=== PATIENT | female | born 1990 | race Caucasian/White ===

== ENCOUNTER 2024-03-01 09:58 | Emergency (ER) | payer OTHER ==
[~2024-03-01] VITALS: Ht 162.6 cm; Wt 59.1 kg
[2024-03-01 10:07] VITALS: TEMP 97.7
[2024-03-01] MEDS ORDERED: NO HOME MEDS (10:39)
[2024-03-01 10:48] LABS: BASOPHILS % (AUTO) 0.5 % (0-1); EOSINOPHILS # (AUTO) 0.1 X10'3 (0-0.9)
[2024-03-01 10:50] LABS: HEMATOCRIT 40.4 % (35.0-45.0); HEMOGLOBIN 13.7 g/dl (12.0-16.0); LYMPHOCYTES # (AUTO) 3.7 X10'3 (1.1-4.8); LYMPHOCYTES % (AUTO) 64.3 % (21-51); MEAN CORPUSCULAR HEMOGLOBIN 29.8 PG (27.0-31.0); MEAN CORPUSCULAR VOLUME 87.6 FL (78-98); MEAN PLATELET VOLUME 7.3 FL (7.4-10.4); MONOCYTES # (AUTO) 0.4 X10'3 (0-0.9); MONOCYTES % (AUTO) 6.5 % (2-12); NEUTROPHILS # (AUTO) 1.6 X10'3 (1.8-7.7); NEUTROPHILS % (AUTO) 27.7 % (42-75); PLATELET COUNT 264 X10'3 (140-440); RED BLOOD COUNT 4.61 X10'6 (4.20-5.60); RED CELL DISTRIBUTION WIDTH 13.2 % (11.5-14.5); WHITE BLOOD COUNT 5.8 X10'3 (4.5-11.0)
[2024-03-01 10:53] LABS: ALBUMIN 3.8 G/DL (3.4-5.0); ANION GAP 13 (8-16); BLOOD UREA NITROGEN 9 MG/DL (7-18); BUN/CREATININE RATIO 10.6 (10.0-20.0); CALCIUM 8.6 MG/DL (8.5-10.1); CHLORIDE 105 MMOL/L (99-107); CREATININE 0.85 MG/DL (0.40-0.90); GLUCOSE 109 MG/DL (70-104); POTASSIUM 3.1 MMOL/L (3.5-5.1); SODIUM 138 MMOL/L (135-145); TOTAL CARBON DIOXIDE 20.1 MMOL/L (24-32); eCRCL 83 ML/MIN; eGFR 78 ML/MIN
[2024-03-01 10:56] LABS: APTT 26 SECONDS (22-32); PROTHROMBIN TIME 10.6 SECONDS (9.0-12.0)
[2024-03-01] MEDS ORDERED: iohexol 350MG/ML 100ml bottle IV ONE (11:02)
[2024-03-01] MEDS: diphenhydrAMINE 50 mg/ml inj IV ONE (11:24)
[2024-03-01] MEDS: ketorolac trometh 15mg/ml vial 15 MG/ML ML IV ONE (11:25)
[2024-03-01] MEDS: proCHLORperazine 10 MG/2 ml inj IV ONE (11:26)
[2024-03-01 14:15] VITALS: BP 101/64; PULSE 73; RESP 16; O2SAT 97
[2024-03-01] MEDS: potassium Cl 20 mEq SR tablet PO ONE (14:21)
== END 2024-03-01 14:15 | disposition home or self-care (01) ==
LOC: ER 09:59
DX: R47.01 Aphasia (principal); G43.809 Other migraine, not intractable, without status migrainosus; F41.9 Anxiety disorder, unspecified; R41.0 Disorientation, unspecified; R79.1 Abnormal coagulation profile; R07.89 Other chest pain
CPT/HCPCS: 70450; 70496; 70498; 71045; 80048; 82948; 85025; 85610; 85730; 93005; 96374; 96375; 99285; J0780; J1200; J1885; J7030; Q9967

== ENCOUNTER 2024-12-22 10:54 | Inpatient (IN) | payer OTHER ==
[~2024-12-22] VITALS: Ht 162.6 cm; Wt 57.6 kg
[~2024-12-22 10:54] MED LIST: NO HOME MEDS
--- NOTE | 2024-12-22 12:26 | Physician Documentation ---
History of Present Illness General Chief Complaint: See Chief Complaint Stated Complaint: DYSPHAGIA Time Seen by MD: 11:49 Primary Medical Doctor: NONE History of Present Illness Initial Comments The patient is a 34-year-old female who has prescribed doxycycline by her rv technician. She took it on Sunday, five days ago with a very small quantity of water and immediately laid down to go to sleep. Since then, swallowing anything has been very painful. Medication Reconciliation Allergies: Coded Allergies: No Known Allergies (Unverified , 12/22/24) Miscellaneous Medications Home Med List (No Home Medications), (Reported) Past Medical History Past Medical History: Anxiety Alcohol Use: None Drug Use: none Review of Systems ROS Constitutional: Denies chills, fatigue, fever, weight gain or weight loss. HEENT: Denies hearing loss, sinus pressure or visual changes. Respiratory: Denies cough, shortness of breath or wheezing. Cardiovascular: Denies chest pain, pain while walking (claudication), edema or palpitations. Gastrointestinal: Painful swallowing. Genitourinary: Denies painful urination (dysuria), excessive amount of urine (polyuria) or urinary frequency. Metabolic/Endocrine: Denies cold intolerance, heat intolerance, excessive thirst (polydipsia) or excessive hunger (polyphagia). Neurological: Denies dizziness, extremity numbness, extremity weakness, headaches, seizures or tremors. Psychiatric: Denies anxiety or depression. Integumentary: Denies breast discharge, breast lump, hives, mole change(s), rash or skin lesion. Musculoskeletal: Denies back pain, joint pain, joint swelling or neck pain. Hematologic: Denies easily bleeding, easily bruises, lymphedema or issues with blood clots. Immunologic: Denies food allergies or seasonal allergies. Physical Exam Physical Exam Vital Signs: Temperature: 97.6, Source: Temporal, Heart Rate: 74, Respiratory R ate: 18, BP: 104/77, Pulse Oximetry: 99, Weight: 57.600 Physical Exam Physical Exam Vitals and nursing note reviewed. Constitutional: General: Patient is awake, alert, oriented x 4 in no acute distress and well appearing. Speech is clear and lucid. Appearance: Normal appearance. Patient is not ill-appearing, toxic-appearing or diaphoretic. HENT: Head: Normocephalic and atraumatic. Mouth/Throat: Mouth: Mucous membranes are moist. Pharynx: Oropharynx is clear. Eyes: General: No scleral icterus. Extraocular Movements: Extraocular movements intact. Pupils: Pupils are equal, round, and reactive to light. Neck: Supple, no Kernig or Brudzinski sign. Cardiovascular: Rate and Rhythm: Normal rate and regular rhythm. Heart sounds: No murmur heard. Pulmonary: Effort: No respiratory distress. Breath sounds: No wheezing, rhonchi or rales. Abdominal: General: There is no distension. Palpations: There is no fluid wave, hepatomegaly or mass. Tenderness: There is no abdominal tenderness. There is no guarding. Musculoskeletal: General: No swelling or deformity. Skin: Coloration: Skin is not jaundiced. Findings: No erythema or rash. Neurological: Mental Status: Patient is alert. Progress Results/Orders Results/Orders Orders - NATASHA HAYNES MD CMP (12/22/24 12:05) Lipase (12/22/24 12:05) PTT (12/22/24 12:05) Normal Saline 1000ml (0.9% Sodium Chlori (12/22/24 12:05) Page Hospitalist (12/22/24 12:26) Completed Orders - NATASHA HAYNES MD Cbc/Diff (12/22/24 12:05) Pantoprazole 40mg Iv (Protonix 40mg Iv) (12/22/24 12:05) Medications Received in ER Medications (Trade) Dose Ordered Sig/Kasi Route PRN Reason Start Time Stop Time Status Last Admin Dose Admin Sodium Chloride 1,000 ml @ 1,000 mls/hr ONCE ONCE IV 12/22/24 12:05 12/22/24 13:04 12/22/24 12:46 1,000 MLS/HR (Protonix 40mg IV) 40 mg ONCE STAT IV 12/22/24 12:05 12/22/24 12:21 DC 12/22/24 12:46 40 MG Vital Signs 12/22/24 12/22/24 12/22/24 11:12 12:35 12:37 Temp 97.6 Pulse 74 71 Resp 18 16 16 B/P (MAP) 104/77 106/74 (85) Pulse Ox 99 100 O2 Flow Rate 0 Laboratory Tests Test 12/22/24 12:29 White Blood Count 8.6 Red Blood Count 4.46 Hemoglobin 13.4 Hematocrit 39.8 Mean Corpuscular Volume 89.3 Mean Corpuscular Hemoglobin 30.1 Mean Corpuscular Hemoglobin Concent 33.8 Red Cell Distribution Width 12.4 Platelet Count 303 Mean Platelet Volume 7.7 Neutrophils (%) (Auto) 65.6 Lymphocytes (%) (Auto) 27.5 Monocytes (%) (Auto) 5.6 Eosinophils (%) (Auto) 0.8 Basophils (%) (Auto) 0.5 Neutrophils # (Auto) 5.7 Lymphocytes # (Auto) 2.4 Monocytes # (Auto) 0.5 Eosinophils # (Auto) 0.1 Basophils # (Auto) 0.0 CBC Comment Coagulation Comments Chemistry Comments Medical Decision Making Findings This patient gives a strong history for pill esophagitis. I spoke with Dr. Driver who requested we admit her and she will do an EGD tomorrow. I am giving her IV fluids and Protonix. 12:35 p.m.: I spoke with Dr. Galvez who indicated that the patient would have an EGD tomorrow if she is admitted today. Departure Disposition: ADMITTED INPATIENT Impression: Primary Impression: Pill esophagitis Additional Impression: Odynophagia Condition: Stable Referrals: NO PRIMARY CARE PROVIDER (PCP) Signature Scribe Signature: . Attestation: . NATASHA HAYNES MD Dec 22, 2024 12:26
[2024-12-22] MEDS: normal saline 1000ml 1,000 ML IV ONE (12:46)
[2024-12-22 12:48] LABS: MEAN PLATELET VOLUME 7.7 FL (7.4-10.4); RED CELL DISTRIBUTION WIDTH 12.4 % (11.5-14.5)
[2024-12-22] MEDS ORDERED: magnesium hydroxide 30ml (MOM) UD suspension PO PRN (12:50)
[2024-12-22] MEDS ORDERED: potassium Cl 20 mEq SR tablet PO PRN ×2 (12:50)
[2024-12-22] MEDS ORDERED: magnesium Cl slow-release 64mg tablet PO PRN (12:50)
[2024-12-22] MEDS ORDERED: ondansetron/PF 4mg/2ml inj IV PRN (12:50)
[2024-12-22] MEDS ORDERED: magnesium sulf-water 4G/100mL 100 ML IV PRN (12:50)
[2024-12-22] MEDS ORDERED: magnesium sulf-water 2g/50mL 50 ML IV PRN (12:50)
[2024-12-22] MEDS ORDERED: bisacodyl 10mg suppository rectal RC PRN (12:50)
[2024-12-22] MEDS ORDERED: potassium Cl 40MEQ/1/2NS 520ml 520 ML IV PRN (12:50)
[2024-12-22] MEDS ORDERED: HYDROcodone/acetaminophen 5mg/325mg tablet PO PRN (12:50)
[2024-12-22 12:59] LABS: APTT 27 SECONDS (22-32)
[2024-12-22 13:05] LABS: CREATININE 0.79 MG/DL (0.40-0.90); TOTAL CARBON DIOXIDE 24.2 MMOL/L (24-32); eCRCL 88 ML/MIN; eGFR 84 ML/MIN
--- NOTE | 2024-12-22 13:12 | HISTORY AND PHYSICAL-Residence ---
History & Physical Providers to CC Resident Creating Document: ORIANA SILVESTRE RES ~ History of Present Illness Primary Medical Doctor: NONE Reason for Admit\Complaint: Chest pain History of Present Illness 34 year year old pleasant young lady presented to the ER with past medical history of [id number]-[id number] iron-deficiency anemia, acne presented to the ER with a chest pain. Reports chest pain, retrosternal, burning type, currently at 2/10 but whenever she takes food and water pain will be aggravated to 7 to 8/10. She was apparently doing better a few weeks back but she received almost 60 doxycycline pills for 30 days by cafeteria attendant for acne. She endorses mild burning type of abdominal pain over the epigastric region for the past 4-5 days. She denied abdominal distention, indigestion, nausea, dyspepsia, acid reflux, hematemesis, melena, jaundice, swelling of legs. She denied shortness of breath, palpitations, fat fatigue, weakness of limbs, slurring of speech, deviation of angle of mouth, seizures, blurring of vision. Discussed code status with the patient and patient wants to be in full code. Allergies: Coded Allergies: No Known Allergies (Unverified , 12/22/24) Home Medications Home Medications Active Reported No Home Medications (Home Med List) Each Past Medical History Past Medical History Iron-deficiency anemia Past Surgical History Surgical History Comment Family History Family History: Patient reports no known family medical history. Past Social History Smoking: Non-Smoker Alcohol Use: None Drug Use: None ROS All Other Systems: Reviewed and Negative ROS Reviewed in full and negative except positive pertinent as in HPI Exam Vitals: Vital Signs Date Time Temp Pulse Resp B/P (MAP) Pulse Ox O2 Delivery O2 Flow Rate FiO2 12/22/24 12:37 16 12/22/24 12:35 71 100 0 12/22/24 11:12 97.6 General: General: Patient is awake, alert, oriented x 4 in no acute distress and well appearing. Speech is clear and lucid.. HEENT: Normocephalic and atraumatic. Mucous membranes are moist. Pharynx: Oropharynx is clear. Eyes: No scleral icterus, extraocular muscles are intact. No scleral icterus. Extraocular movements intact. Pupils are equal, round, and reactive to light. NECK IS Supple, no Kernig or Brudzinski sign. Cardiovascular: Normal rate and regular rhythm. S1-S2 heard. No S3, S4, murmur/rubs/gallop Chest and respiratory system: Bilateral normal vesicular breath sounds are heard. No wheezing/rhonchi/rales. Gastrointestinal: Soft, nondistended, nontender, no organomegaly. No guarding/rigidity/rebound tendernessng. Musculoskeletal: No swelling or deformity. Extremities: No clubbing/edema Skin: Warm and dry. Neurological: Higher mental functions are intact Motor system: Bulk, tone is normal. Power is 5 x 5 in all extremities. Reflexes are intact. Sensory system: Intact Cerebellum: Intact No meningeal signs Diagnostic Data Last Recorded Lab Results: 12/22/24 1229 12/22/24 1229 Diagnostic Data: Laboratory Tests Test 12/22/24 12:29 Activated Partial Thromboplast Time 27 SECONDS (22-32) Coagulation Comments Advance Care Planning Advanced Care plannin - 30 Minutes Additional Plan Chest pain likely secondary to pill induced esophagitis(doxycycline) versus reflux esophagitis versus gastroduodenitis Vitals are stable and labs are within normal range. Initially on NPO but ER team consulted Dr. Driver who recommended for esophagogastroduodenoscopy on tomorrow so we are giving the clear liquid diet Discontinue doxycycline NPO after midnight Iron-deficiency anemia Hemoglobin and hematocrit is 13.4/39.8 Code status: Full code GI prophylaxis: Protonix Diet: Clear liquid/NPO after midnight PT: Ordered Prognosis: Guarded Oriana Silvestre IM resident, PGY 2 Date of Service: Dec 22, 2024 Billing Provider: SANDRA MADDEN MD, VENKATESH, RES Dec 22, 2024 13:12
[2024-12-22 13:42] LABS: ETHANOL < 10 MG/DL (<10)
[2024-12-22] MEDS: normal saline 1000ml 1,000 ML IV SCH (13:51)
[2024-12-22] MEDS: LIDOcaine 2% Viscous 15ml cup MM STA (13:51)
--- NOTE | 2024-12-22 13:59 | RADIOLOGY REPORT ---
CHEST RADIOGRAPH Indication: CHEST PAIN Technique: Single frontal view of the chest was obtained COMPARISON: DI CHEST,SINGLE VIEW on DOS: 03/01/24 FINDINGS: Lines and Tubes: None Lungs: Clear Pleura: No effusion. No pneumothorax. Cardiomediastinal contours: Unremarkable Bones: Unremarkable IMPRESSION: No acute disease.
--- NOTE | 2024-12-22 15:44 | CONSULTATION REPORT - RESIDENT ---
Consult Providers to CC Resident Creating Document: KEVIN HEAD RES History of Present Illness Reason for Admit\Complaint: Dysphagia History of Present Illness This 34-year-old female presented to ER with past medical history of mild to moderate iron deficiency anemia, acne presented to ER with a complaint of dysphagia. She reports that 20 days ago she was prescribed doxycycline for acne from a head filter tank tender helper and since Sunday she is experiencing difficulty in swallowing and pain while swallowing for both solids and liquids, the pain starts in the middle of the chest which is burning type 7 to 8/10 in intensity, and radiates down till epigastric, because of her pain during swallowing she she has been consuming pureed diet for the past three days. She denies nausea, hematemesis, blood in stool. She reports that before starting doxycycline she never had these symptoms. Denies symptoms of gastroesophageal reflux disease like heartburn, acid regurgitation etc.. She never had a colonoscopy or EGD. Apart from that patient also reports that she takes control pills. Allergies: Coded Allergies: No Known Allergies (Unverified , 12/22/24) Home Medications Home Medications Active Reported No Home Medications (Home Med List) Each Past Medical History Past Medical History Lfwi-of-firmdapq anaemia Placenta previa Patient also reports that she had some vasospasm in the brain, she on exactly what it was Past Surgical History Surgical History Comment Family History Family History: Patient reports no known family medical history. ROS ROS Reviewed and negative except for pertinent positive findings mentioned and HPI Exam Vitals: Vital Signs Date Time Temp Pulse Resp B/P (MAP) Pulse Ox O2 Delivery O2 Flow Rate FiO2 12/22/24 13:48 66 14 107/69 (82) 100 12/22/24 12:35 0 12/22/24 11:12 97.6 General: General: Patient is awake, alert, oriented x 4 in no acute distress and well appearing. Speech is clear. HEENT: Normocephalic and atraumatic. Mucous membranes are moist. Pharynx: Oropharynx is clear. Eyes: No scleral icterus, extraocular muscles are intact. No scleral icterus. Extraocular movements intact. Pupils are equal, round, and reactive to light. NECK IS Supple, no Kernig or Brudzinski sign. Cardiovascular: Normal rate and regular rhythm. S1-S2 heard. No S3, S4, murmur/rubs/gallop Chest and respiratory system: Bilateral normal vesicular breath sounds are heard. No wheezing/rhonchi/rales. Gastrointestinal: Soft, nondistended, nontender, no organomegaly. No guarding/rigidity/rebound tendernessng. Musculoskeletal: No swelling or deformity. Extremities: No clubbing/edema Skin: Warm and dry. Neurological: Motor system: Bulk, tone is normal. Power is 5 x 5 in all extremities. Reflexes are intact. Sensory system: Intact Cerebellum: Intact Diagnostic Data Last Recorded Lab Results: 12/22/24 1229 12/22/24 1229 Diagnostic Data: Laboratory Tests Test 12/22/24 12:29 Activated Partial Thromboplast Time 27 SECONDS (22-32) Coagulation Comments Additional Plan This is a 34-year-old female with past medical history of iron-deficiency anemia, I think presented to ER with complain of dysphagia and odynophagia, differentials include GERD, with her without stricture, if not stricture and esophageal dysmotility that inherent with GERD. The other etiologies could be pill esophagitis especially because the doxycycline that she has been taking. Keep patient NPO after midnight Clear liquid diet Discontinue doxycycline at this moment Aspiration precautions Continue pantoprazole Q5 IV 20 mL/hour. Avoid NSAIDs Patient will undergo EGD tomorrow, for diagnostic purposes, if necessary therapeutic interventions including esophageal dilatation will be performed. This will depend upon the findings. Kevin Head PGY1 IM Resident Date of Service: Dec 22, 2024 Billing Provider: JORJE LOVELL MD, SANJAY, RES Dec 22, 2024 15:43
[2024-12-22] MEDS: pantoprazole 40MG/NS 100ML BAG 100 ML IV SCH (16:49)
[2024-12-22 17:40] LABS: HCG SERUM QL NEGATIVE
[2024-12-22] MEDS ORDERED: morphine 4 MG/ML inj SYRINge IV PRN (17:44)
[2024-12-22 18:15] VITALS: BP 103/68; PULSE 60; RESP 16; TEMP 98.9; O2SAT 95
[2024-12-22 20:00] VITALS: RESP 16; O2SAT 95
[2024-12-22 22:00] VITALS: BP 93/52; PULSE 60; RESP 16; TEMP 97.3; O2SAT 95
[2024-12-23] VITALS (10 sets, daily range): BP systolic 90–112; BP diastolic 52–72; PULSE 64–88; RESP 14–19; TEMP 97.7–98.2; O2SAT 93–99
[2024-12-23] MEDS ORDERED: LIDOcaine 2% Viscous 15ml cup ONE (08:33)
[2024-12-23] MEDS ORDERED: fentaNYL/PF 50MCG/1 ML 2ML syringe ONE (09:04)
[2024-12-23] MEDS ORDERED: MIDAZolam 1 MG/ML 5ML VIAL ONE (09:04)
[2024-12-23] MEDS ORDERED: simethicone 40mg/0.6ml oral drops 15ml ONE (09:16)
[2024-12-23] MEDS ORDERED: PANT-47 PO (10:29)
--- NOTE | 2024-12-23 15:57 | DISCHARGE SUMMARY-Residence ---
Discharge Summary Providers to CC Resident Creating Document: ORIANA SILVESTRE, RES ~ Discharge Summary Admission Diagnosis: Possible pill esophagitis, odynophagia Hospital Course DATE OF ADMISSION: 12/22/2024 DATE OF DISCHARGE: 12/23/2024 Chest x-ray on 12/22/2024 FINDINGS: Lines and Tubes: None Lungs: Clear Pleura: No effusion. No pneumothorax. Cardiomediastinal contours: Unremarkable Bones: Unremarkable IMPRESSION: No acute disease. Discharge Diagnosis\Comment: Dysphagia and odynophagia secondary to pill induced esophagitis Esophageal ulcer Operations\Procedures: Upper GI endoscopy by Dr. Driver Consultants: Dr. Driver Complications: None Condition on DC: Stable New Medications: Pantoprazole Sodium (PROTONIX tablet) 40 Mg Tablet.dr 1 TAB PO BKF for 30 Days, #30 TAB 0 Refills Discharge Summary: HPI at the time of admission 34 year year old pleasant young lady presented to the ER with past medical history of meum-dg-bhtxirbd iron-deficiency anemia, acne presented to the ER with a chest pain. Reports chest pain, retrosternal, burning type, currently at 2/10 but whenever she takes food and water pain will be aggravated to 7 to 8/10. She was apparently doing better a few weeks back but she received almost 60 doxycycline pills for 30 days by school bus inspector for acne. She endorses mild burning type of abdominal pain over the epigastric region for the past 4-5 days. She denied abdominal distention, indigestion, nausea, dyspepsia, acid reflux, hematemesis, melena, jaundice, swelling of legs. She denied shortness of breath, palpitations, fat fatigue, weakness of limbs, slurring of speech, deviation of angle of mouth, seizures, blurring of vision. Discussed code status with the patient and patient wants to be in full code Course in the hospital Admitted for dysphagia, odynophagia, chest pain secondary to pill induced esophagitis. Patient was on Protonix and we consulted Dr. Driver for endoscope. Patient underwent endoscopy on 23 December 2024 and it showed e sophageal ulcer with no stigmata of recent bleeding. Biopsied. Z line irregular 40 cm from incisors. Biopsied and normal stomach and normal duodenal bulb and 2nd portion of the duodenum. Examination at the time of discharge General: Patient is awake, alert, oriented x 4 in no acute distress and well appearing. Speech is clear and lucid.. HEENT: Normocephalic and atraumatic. Mucous membranes are moist. Pharynx: Oropharynx is clear. Eyes: No scleral icterus, extraocular muscles are intact. No scleral icterus. Extraocular movements intact. Pupils are equal, round, and reactive to light. NECK IS Supple, no Kernig or Brudzinski sign. Cardiovascular: Normal rate and regular rhythm. S1-S2 heard. No S3, S4, murmur/rubs/gallop Chest and respiratory system: Bilateral normal vesicular breath sounds are heard. No wheezing/rhonchi/rales. Gastrointestinal: Soft, nondistended, nontender, no organomegaly. No guarding/rigidity/rebound tendernessng. Musculoskeletal: No swelling or deformity. Extremities: No clubbing/edema Skin: Warm and dry. Neurological: Higher mental functions are intact Motor system: Bulk, tone is normal. Power is 5 x 5 in all extremities. Refle xes are intact. Sensory system: Intact Cerebellum: Intact No meningeal signs Discharge advice Follow up with primary care physician in 5 days with CBC, CMP, ESR, procalcitonin. Follow up with steam hoist operator in 4 weeks. You should take all pills in an upright posture and should drink at least 4 oz of fluid with any medication and 8 oz with medications that are strongly associated with pill esophagitis(tetracycline, alendronate, potassium chloride , quinidine). You should remain upright for at least 10 minutes after taking any pills and for at least 30 minutes with pills that are strongly associated with pill esophagitis. Read adverse effects of medication prescribed. Call 911 or visit ER if emergency *Problems/Diagnosis: (1) Chest pain (2) Pill esophagitis Status: Acute (3) Odynophagia Status: Acute (4) Esophageal ulcer Total Time Spent on D/C: > 30 Minutes Date of Service: Dec 23, 2024 Billing Provider: SANDRA MADDEN MD Common Visit Codes: 86341-YOC/OBS DISCH DAY >30min ORIANA SILVESTRE RES Dec 23, 2024 15:50 SANDRA MADDEN MD Dec 23, 2024 18:09
--- NOTE | 2024-12-25 19:24 | PATHOLOGY REPORT ---
[facility] [address] [place] [address] SURGICAL PATHOLOGY REPORT CaseNumber: [id number] Surgeon:Rosa Toribio M.D. CLINICAL INFORMATION CLINICAL INFORMATION: Dysphagia, odynophagia, h/o recent doxycycline therapy. DIAGNOSIS DIAGNOSIS: A.STOMACH, ANTRUM; BIOPSY - MILD CHRONIC GASTRITIS. - PSITIVE FOR INTESTINAL METAPLASIA. - NEGATIVE FOR HELICOBACTER PYLORI. DIAGNOSIS: B.ESOPHAGUS, DISTAL; BIOPSY - MILD CHRONIC INFLAMMATION. - GLANDULAR EPITHELIUM WITHOUT INTESTINAL METAPLASIA. - NEGATIVE FOR DYSPLASIA. DIAGNOSIS: C.ESOPHAGUS, PROXIMAL; BIOPSY - SEVERELY ULCERATED FIBROMUSCULAR TISSUE. - NEGATIVE FOR MALIGNANCY. - NEGATIVE FOR FUNGAL ELEMENTS. MICROSCOPIC DESCRIPTION A. STOMACH, ANTRUM MICROSCOPIC DESCRIPTION: A single slide of the antral biopsy is reviewed. Present is mild chronic gastritis. The mucosa is intact without erosion or ulceration. There is no increased number of intraepithelial lymphocytes or neutrophils. The lamina propria is expanded by a slight increased content of fibrous tissue which distorts the glandular architecture to a slight extent. There is no malignancy. An Alcian blue/PAS stain was performed. The control stains appropriately positive and negative. Intestinal metaplasia is identified. An immunoperoxidase stain was performed. The antibody utilized was to H. pylori. No stainable organisms are identified. B. ESOPHAGUS, DISTAL MICROSCOPIC DESCRIPTION: A single slide of the distal esophageal biopsy is reviewed. Present is mild chronically inflamed glandular mucosa (gastric) without intestinal metaplasia The gastric mucosa is of the cardiac type. There is an increased content of fibrous tissue within the lamina propria. No obvious intestinal metaplasia is identified. An Alcian blue/PAS stain was performed. The control stains appropriately positive and negative. No intestinal metaplasia is identified. There is no dysplasia. C. ESOPHAGUS, PROXIMAL MICROSCOPIC DESCRIPTION: A single slide of the proximal esophageal biopsy is reviewed. Present is solely acute and chronically inflamed fibromuscular tissue containing no epithelial elements. The tissue, for the most part, consists of dense fibroconnective tissue within which are a few scattered large vessels. There are a few strands of smooth muscle present. There is no obvious malignancy. To rule out the possibility of an occult neoplasm, immunoperoxidase stains were performed. The controls stain appropriately positive and negative. The antibody utilized was to AE1/AE3. No significant epithelial component is identified. An Alcian blue/PAS stain was performed. The control stains appropriately positive and negative. There are no features of fungal elements or mucin production. (st) GROSS DESCRIPTION A. STOMACH, ANTRUM GROSS DESCRIPTION: Received in a container of formalin labeled with the patient's name, number, and "antrum biopsy" are tw pieces of bernstein tissue 0.2 and 0.3 cm. The specimen is entirely submitted as A1. The time at which the specimen was removed was 09. The time at which the specimen was placed in formalin was 09. B. ESOPHAGUS, DISTAL GROSS DESCRIPTION: Received in a container of formalin labeled with the patient's name, number, and "distal esophagus BX" is a 0.4 x 0.2 x 0.1 cm piece of bernstein tissue. The specimen is entirely submitted as B1. The time at which the specimen was removed was 929. The time at which the specimen was placed in formalin was 929. C. ESOPHAGUS, PROXIMAL GROSS DESCRIPTION: Received in a container of formalin labeled with the patient's name, number, and "proximal esophagus BX" are 2 pieces of bernstein tissue 0.2 and 0.4 x 0.1 x 0.1 cm. The specimen is entirely submitted as C1. The time at which the specimen was removed was 930. The time at which the specimen was placed in formalin was 09. Electronically signed by: Kenny Childs M.D. 12/25/2024 6:58:00 PM
== END 2024-12-23 13:10 | disposition home or self-care (01) | DRG 392 ==
LOC: ER 10:55 → ED HOLD 12:57 → EDBEDREQ 14:47 → ORTHO 4S 17:40 → SUR 3N 12-23 05:16
PROVIDERS: ADMIT Internal Medicine; ATTEND Internal Medicine
PROC: 0DB78ZX Excision of Stomach, Pylorus, Via Natural or Artificial Opening Endoscopic, Diagnostic (ICD-10-PCS; 2024-12-23)
PROC: 0DB18ZX Excision of Upper Esophagus, Via Natural or Artificial Opening Endoscopic, Diagnostic (ICD-10-PCS; 2024-12-23)
PROC: 0DB38ZX Excision of Lower Esophagus, Via Natural or Artificial Opening Endoscopic, Diagnostic (ICD-10-PCS; principal; 2024-12-23 09:12)
DX: K20.80 Other esophagitis without bleeding (principal); D50.9 Iron deficiency anemia, unspecified; F41.9 Anxiety disorder, unspecified; T50.995A Adverse effect of other drugs, medicaments and biological substances, initial encounter; Y92.89 Other specified places as the place of occurrence of the external cause
CPT/HCPCS: 36415; 43239; 71045; 80053; 80320; 83605; 83690; 84703; 85025; 85730; 87040; 87081; 99152; 99153; A4620; G0378; J2250; J2470; J3010; J7030; J7120